=== PATIENT | male | born 1945 | race Caucasian/White ===

== ENCOUNTER 2018-03-27 06:12 | Day surgery (SDC) | payer OTHER ==
[~2018-03-27 06:12] MED LIST: CARDURA1 MG PO; METFORMIN HCL500 MG PO; NORVASC5 MG PO; ZOCOR20 MG PO
[2018-03-27] MEDS ORDERED: DUI500 PO (08:54)
[2018-03-27] MEDS ORDERED: TRAM1TAB98 PO (08:54)
== END 2018-03-27 12:50 | disposition home or self-care (01) ==
LOC: CIR.AMB 06:12
DX: M23.322 Other meniscus derangements, posterior horn of medial meniscus, left knee (principal); M23.342 Other meniscus derangements, anterior horn of lateral meniscus, left knee; M23.352 Other meniscus derangements, posterior horn of lateral meniscus, left knee; M17.12 Unilateral primary osteoarthritis, left knee